=== PATIENT | female | born 1985 | race Caucasian/White ===

== ENCOUNTER 2019-11-19 06:59 | Emergency (ER) | payer MEDICAID ==
[~2019-11-19] VITALS: Ht 160 cm; Wt 95.3 kg
[2019-11-19 07:14] VITALS: Ht 160 cm; Wt 95.3 kg
[2019-11-19 07:55] VITALS: BP 136/98
== END 2019-11-19 07:55 | disposition home or self-care (01) ==
LOC: ED 06:59
DX: O26.892 Other specified pregnancy related conditions, second trimester (principal); M79.672 Pain in left foot; Z3A.15 15 weeks gestation of pregnancy